=== PATIENT | male | born 2000 | race Two or more races ===

== ENCOUNTER 2018-11-06 15:32 | Emergency (ER) | payer MEDICAID ==
[~2018-11-06] VITALS: Ht 167.6 cm; Wt 73.0 kg
[2018-11-06 15:37] VITALS: BP 100/50
== END 2018-11-06 19:36 | disposition left against medical advice (07) ==
LOC: ER 15:32
DX: Z53.21 Procedure and treatment not carried out due to patient leaving prior to being seen by health care provider (principal)